=== PATIENT | female | born 1950 | race Caucasian/White ===

== ENCOUNTER 2019-04-03 09:41 | Day surgery (SDC) | payer MEDICARE ==
[2019-04-02 14:48] VITALS: BMI 22.8
[2019-04-03] MEDS ORDERED: Lidocaine 1% PF 5 ML VIAL ONE (10:01)
[2019-04-03] MEDS ORDERED: Bupivacaine PF 0.75% SDV 10 ML ONE (10:01)
[2019-04-03] MEDS ORDERED: Lidocaine 4% PF 5 ML AMP ONE (10:01)
[2019-04-03] MEDS ORDERED: PROPOFOL 200 MG/20 ML VIAL ONE (10:01)
[2019-04-03] MEDS ORDERED: Indocyanine Green 25 MG/10 ML VIAL ONE (10:01)
[2019-04-03] MEDS ORDERED: Triamcinolone 40 MG/ML VIAL ONE (10:01)
[2019-04-03] MEDS ORDERED: Maxitrol 0.1% Opth Oint 3.5 GM TUBE ONE (10:01)
[2019-04-03] MEDS ORDERED: diphenhydrAMINE 50 MG/ML VIAL ONE (10:01)
[2019-04-03] MEDS ORDERED: CEFAZOLIN 1 GM VIAL ONE (10:01)
[2019-04-03] MEDS ORDERED: EPINEPHrine 0.3 MG in Ophthalmic Irrigation Solution 500 ML IRR SCH (10:15)
[2019-04-03] MEDS ORDERED: Phenylephrine 2.5% Ophth Soln 5 ML BOT ONE (10:28)
[2019-04-03] MEDS ORDERED: Cyclopentolate 1% Opth Drop 2 ML BOT ONE (10:28)
[2019-04-03] MEDS ORDERED: Midazolam HCl 2 mg/2 ml Vial ONE ×3 (11:32→12:00)
[2019-04-03] MEDS ORDERED: Fentanyl 100 MCG/2 ML VIAL ONE (12:00)
--- NOTE | 2019-04-03 19:28 | OP ---
DATE OF PROCEDURE: 04/03/2019 PREOPERATIVE DIAGNOSIS: Macular hole, right eye. POSTOPERATIVE DIAGNOSIS: Macular hole, right eye. PROCEDURES PERFORMED: 1. A 25-gauge pars plana vitrectomy, right eye. 2. Macular hole repair, right eye. ESTIMATED BLOOD LOSS: None. SPECIMENS REMOVED: None. COMPLICATIONS: None. ANESTHESIA: MAC with retrobulbar block. SUMMARY OF OPERATION: The patient was identified in the preoperative holding area, where the correct eye being the right eye was marked for surgery. The patient was taken to the operating room, where MAC anesthesia was induced. A retrobulbar block was administered to the right eye. The block consisted of 1:1 ratio of 4% lidocaine with 0.75% Marcaine. A total of 5 mL was administered. The right eye was then prepped and draped in the usual sterile ophthalmic fashion for surgery. A wire lid speculum was placed. A standard 25-gauge pars plana vitrectomy platform was fashioned with trocars placed approximately 4 mm from the limbus. The infusion was noted to be within the vitreous cavity prior to being turned on to an infusion pressure of 30 mmHg. The light pipe and Micro vitrector were introduced in the eye under visualization of the BIOM viewing system. A careful core vitrectomy was performed followed by injection of Kenalog. Subsequently, a gentle posterior vitreous detachment was created followed by completion of peripheral shave vitrectomy. Following completion of vitrectomy, ICG dye was used to stain the internal limiting membrane. Using the Charbel ILM forceps, the ILM was peeled in a circumferential fashion about the fovea. The peel extended approximately 2 disk diameters in radius circumferentially. Following peeling, the Micro vitrector was reintroduced in the eye to remove the residual vitreous debris. An air-fluid exchange was performed, which allowed for complete air fill. Subsequently, an air-gas exchange was performed with 15% SF6. A 360-degree scleral depressed exam of the periphery was performed, which revealed no defects. The cannulas were sequentially removed. All sclerotomies were noted to be gas tight. Subconjunctival Ancef and Kenalog were injected. The wire lid speculum was removed followed by application of TobraDex ophthalmic ointment and a light patch and shield. The patient tolerated the procedure well, was taken to outpatient recovery area in good condition. Job ID: [id number]
== END 2019-04-03 13:44 | disposition home or self-care (01) ==
LOC: SDC 09:41
PROVIDERS: ATTEND Ophthalmology Retina Specialist
PROC: 08T43ZZ Resection of Right Vitreous, Percutaneous Approach (ICD-10-PCS; principal; 2019-04-03)
PROC: 08NE3ZZ Release Right Retina, Percutaneous Approach (ICD-10-PCS; 2019-04-03)
DX: H35.341 Macular cyst, hole, or pseudohole, right eye (principal); I10 Essential (primary) hypertension; E78.5 Hyperlipidemia, unspecified; M85.80 Other specified disorders of bone density and structure, unspecified site; I65.22 Occlusion and stenosis of left carotid artery; F41.9 Anxiety disorder, unspecified; Z87.891 Personal history of nicotine dependence; Z79.899 Other long term (current) drug therapy
CPT/HCPCS: 67025; J0171; J0690; J1200; J2001; J2250; J2704; J3010; J3301; J3490